=== PATIENT | female | born 1985 | race Caucasian/White ===

== ENCOUNTER → 2018-03-13 15:57 | Outpatient (CLI) | payer BC, SELFPAY ==
[2018-03-13 17:44] LABS: hCG Titer Quant., Serum 931 mIU/mL (<9 non-preg)
[2018-03-13 19:19] LABS: Chlamydia Trachomatis by PCR Negative (Negative); Neisserai gonorrhoeae by PCR Negative (Negative); Probe Check PASS; Sample Adequacy Control PASS; Specimen Processing Control PASS
[2018-03-27 12:44] LABS: HPV APTIMA, High Risk Negative (Negative); HPV Reflexed? YES, CHARGE PATIENT
== END ==
PROVIDERS: Visit Provider Obstetrics & Gynecology
DX: Z12.4 Encounter for screening for malignant neoplasm of cervix (principal); Z34.81 Encounter for supervision of other normal pregnancy, first trimester
CPT/HCPCS: 36415; 84702; 87491; 87591; 87624; 88175; G0145

== ENCOUNTER → 2018-03-15 10:41 | Outpatient (CLI) | payer BC, SELFPAY ==
[2018-03-17 09:31] LABS: Progesterone Level 29.53 ng/mL (See Comment)
[2018-03-17 11:10] LABS: hCG Titer Quant., Serum 2064 mIU/mL (<9 non-preg)
== END ==
PROVIDERS: Family Provider Family Medicine; PCP Family Medicine; Visit Provider Obstetrics & Gynecology
DX: N97.0 Female infertility associated with anovulation (principal)
CPT/HCPCS: 36415; 84144; 84702

== ENCOUNTER → 2018-04-03 09:48 | Outpatient (CLI) | payer BC, SELFPAY ==
[2018-04-03 10:43] LABS: Absolute Lymphocyte Count 1.92 X10^3/ul (0.83-4.51); Absolute Neutrophil Count 6.1 X10^3/uL (2.0-7.7); Basophil# 0.02 X10^3/uL; Basophil% 0.2 % (0-1); Eosinophil# 0.15 X10^3/uL; Eosinophils% 1.7 % (0-5); Hematocrit 38.2 % (37-47); Hemoglobin 12.8 g/dl (12.0-15.0); Lymphocyte # 1.92 X10^3/ul (4.0); Lymphocyte % 22.1 % (19-41); Mean Corp Hgb Conc 33.5 g/gl (32-36); Mean Corpuscular Hgb 29.7 pg (27.0-32.0); Mean Corpuscular Volume 88.6 fL (81-99); Mean Platelet Vol. 9.9 fl (6.2-12.0); Monocyte# 0.45 X10^3/uL; Monocyte% 5.2 % (0-10); Neutrophil # 6.12 X10^3/uL (2.7-7.7); Neutrophil % 70.7 % (47-70); Platelet Count 249 K/mm3 (150-450); RBC Distribution Width CV 12.5 % (11.6-14.6); RBC Distribution Width SD 40.3 fl (35.1-43.9); Red Blood Count 4.31 M/mm3 (4.2-5.4); White Blood Count 8.7 K/mm3 (4.4-11.0)
[2018-04-03 10:44] LABS: POSITIVE COUNT NO; POSITIVE DIFFERENTIAL NO; POSITIVE MORPHOLOGY NO
[2018-04-03 10:55] LABS: Amphetamine Urine VISTA NEGATIVE (<1000 ng/mL); Barbiturate Urine VISTA NEGATIVE (< 200 ng/mL); Benzodiazepine Urine VISTA NEGATIVE (< 200 ng/mL); Cocaine Urine VISTA NEGATIVE (< 300 ng/mL); Ecstacy Urine VISTA NEGATIVE (< 500 ng/mL); Methadone Urine VISTA NEGATIVE (< 300 ng/mL); PCP Urine VISTA NEGATIVE (< 25 ng/mL); THC Urine VISTA NEGATIVE (< 50 ng/mL); Vista UDS pH Range 6
[2018-04-03 10:56] LABS: Color, Urine Yellow (Yellow); Glucose, Dipstick Normal (Normal); Ketone-Dipstick Negative (Negative); Leukocyte Esterase-Dipstick 25 /ul (Negative); Nitrite-Dipstick Negative (Negative); Occult Blood-Urine Negative /ul (Negative); Protein-Dipstick Negative (Negative); Urine Bilirubin Dipstick Negative (Negative); Urine Clarity Clear (Clear); Urine Urobilinogen Normal (Normal)
[2018-04-03 11:08] LABS: Thyroid Stim Hormone (TSH) 0.32 uIU/mL (0.358-3.74)
[2018-04-04 01:05] LABS: Prenatal RPR NONREACTIVE (NONREACTIVE)
[2018-04-04 09:31] LABS: HIV - WCH Non-Reactive (Nonreactive)
[2018-04-04 12:03] LABS: HEPATITIS B SURFACE AG Negative (Negative); Hep C Antibodies <0.1 s/co ratio (0.0-0.9)
== END ==
PROVIDERS: Visit Provider Obstetrics & Gynecology
DX: Z34.81 Encounter for supervision of other normal pregnancy, first trimester (principal)
CPT/HCPCS: 36415; 80307; 81002; 84443; 85025; 86703; 86762; 86803; 87340

== ENCOUNTER → 2018-07-01 16:10 | Outpatient (CLI) | payer BC, SELFPAY | PROVIDERS: Family Provider Family Medicine; PCP Family Medicine; Visit Provider Obstetrics & Gynecology | DX: N39.0 Urinary tract infection, site not specified (principal) | CPT/HCPCS: 87086; 87088; 87186 ==

== ENCOUNTER → 2018-08-20 13:50 | Outpatient (CLI) | payer BC, SELFPAY ==
[2018-08-20 15:42] LABS: Hematocrit 34.7 % (37-47); Hemoglobin 11.7 g/dl (12.0-15.0); Mean Corp Hgb Conc 33.7 g/gl (32-36); Mean Corpuscular Hgb 30.6 pg (27.0-32.0); Mean Corpuscular Volume 90.8 fL (81-99); Mean Platelet Vol. 10.2 fl (6.2-12.0); Platelet Count 227 K/mm3 (150-450); RBC Distribution Width CV 13.8 % (11.6-14.6); RBC Distribution Width SD 44.8 fl (35.1-43.9); Red Blood Count 3.82 M/mm3 (4.2-5.4); White Blood Count 12.4 K/mm3 (4.4-11.0)
[2018-08-20 15:57] LABS: Scan Indicated on CBC? Y/N NO
[2018-08-20 16:16] LABS: Glucose Challenge Gest 1H 50g 136 mg/dL (70-140)
== END ==
PROVIDERS: Visit Provider Obstetrics & Gynecology
DX: Z34.83 Encounter for supervision of other normal pregnancy, third trimester (principal)
CPT/HCPCS: 82950; 85027; 86850

== ENCOUNTER → 2018-10-15 15:08 | Outpatient (CLI) | payer BC, SELFPAY | PROVIDERS: Visit Provider Obstetrics & Gynecology | DX: Z36.85 Encounter for antenatal screening for Streptococcus B (principal) | CPT/HCPCS: 87081 ==

== ENCOUNTER 2018-11-01 07:24 | Inpatient (IN) | payer BC, SELFPAY ==
[2018-11-01 01:06] VITALS: BMI 26.4
[2018-11-01] MEDS: Nalbuphine 10 MG/ML Ampul IV (04:18)
[2018-11-01 04:19] LABS: Hematocrit 37.5 % (37-47); Hemoglobin 12.7 g/dl (12.0-15.0); Mean Corp Hgb Conc 33.9 g/gl (32-36); Mean Corpuscular Hgb 30.5 pg (27.0-32.0); Mean Corpuscular Volume 90.1 fL (81-99); Mean Platelet Vol. 9.3 fl (6.2-12.0); Platelet Count 203 K/mm3 (150-450); RBC Distribution Width CV 13.6 % (11.6-14.6); RBC Distribution Width SD 44.8 fl (35.1-43.9); Red Blood Count 4.16 M/mm3 (4.2-5.4)
[2018-11-01] MEDS: 0.9% NaCl Peripheral Flush Adult/Peds IV (04:19)
[2018-11-01 04:20] LABS: Scan Indicated on CBC? Y/N NO
[2018-11-01] MEDS: 0.9% Saline Lock 10 ML Syringe IV ×2 (08:49→11:28)
[2018-11-01] MEDS: Ondansetron 4 MG/2 ML Vial IV (08:50)
[2018-11-01] MEDS: Oxytocin 30 units/NS 500 ml 30 UNITS/500 ML IV.SOLN 334 UNITS IV (09:07)
[2018-11-01] MEDS: Lactated Ringers 1,000 ML 50 ML IV (09:07)
--- NOTE | 2018-11-01 09:44 | PCM.OB.VAG ---
Vaginal Delivery Maternal Presentation: Active Labor - Prolonged prodromal labor 38 1/7 wk Amniotic Membrane Rupture Type: Artificial Amniotic Fluid Description: Clear Final ANITHA: 11/14/18 Final ANITHA Source: US <20 weeks Gestational age: 38 Weeks and 1 Days Date of Procedure: 11/01/18 Pre-Operative Diagnosis: 38 wk EGA , presents in prodromal labor. Post-Operative Diagnosis: 38 1/7 wk prolonged prodromal labor. rapid progress after AROM Surgery/ Procedure Performed: Spontaneous Vaginal Delivery Type of Anesthesia: None Description of Procedure: 38 wk observed to 38 1/7 wk with prolonged prodromal labor of more than 13 hrs AROM clear fluid then rapid progress from 6 to complete and ready to push of a barclay viable female over intact perineum. Head delivered OA. OP and nares bulb suctioned on perineum and after delivery. No nuchal cord. Shoulders delivered easily. Infant to maternal abdomen. Cord clamped x two and cut. Routine ABG, VBG and cord blood for typing collected. PP exam; no lacerations Placenta delivered by spont expulsion. 3V cord, normal appearing, intact with trailing membranes. EBL 200 cc Pt and tolerated delivery well. To recovery, stable condition. Ray Alysa counts correct x two after delivery. Presentation: Vertex Placental Delivery Description: Spontaneous, Expressed Placenta Disposition: [facility] Cord Vessel Description: 3 Vessels Cord Gases drawn per routine: ABG, VBG Cord Entanglement: None Estimated Blood Loss: 200 Infant A gender: Female (1 minute): 8 (5 minute): 9 Episiotomy Description: None Laceration: None Medications given after delivery: IV Pitocin Complications: None
[2018-11-01] MEDS: Oxytocin 30 units/NS 500 ml 30 UNITS/500 ML IV.SOLN 167 UNITS IV (09:45)
--- NOTE | 2018-11-01 09:50 | PCM.DCVAG ---
Discharge Diet: No Restrictions Discharge Activity: May Shower, May Take a Tub Bath May resume sexual activity in: 4-6 weeks Additional Activity Instructions:: Nothing in the vagina for 4-6 weeks. You may return to work/school in 6 weeks. Additional Instructions: If you experience any of the following, contact your healthcare provider. Bleeding that soaks a pad every hour for 2 hours Fever 100.4 or higher Unrelieved abdominal pain Problems urinating (including inability to urinate or burning while urinating). Visual changes Severe headache Flu-like symptoms Pain or redness in one of both of your breasts Pain, warmth, tenderness or swelling in your legs, especially the calf area Frequent nausea and vomiting Symptoms of depression or anxiety If you experience any of the following, call 911 or go to the nearest Emergency Room. Chest pain Problems breathing Seizure activity Partial or complete paralysis of a body part, slurred speech, weakness or drooping of the face, or a sudden inability to walk or hold your balance Allergies/Adverse Reactions: Allergies Penicillins [PCN] Allergy (Verified 11/21/16 16:34) Rash Medications to take at Discharge Vits [Prenatabs FA ] 1 tablet PO DAILY 11/21/16 Please Follow Up With: Tomás Brown MD - [phone] When: Call to make an appointment with your doctor in 6 weeks. Test Results: Test results from this visit will be discussed in further detail at your follow-up appointment, if applicable. Proposed Discharge Date: 11/03/18
--- NOTE | 2018-11-01 09:51 | DCINST_ITS ---
Discharge Diet: No Restrictions Discharge Activity: May Shower, May Take a Tub Bath May resume sexual activity in: 4-6 weeks Additional Activity Instructions:: Nothing in the vagina for 4-6 weeks. You may return to work/school in 6 weeks. Additional Instructions: If you experience any of the following, contact your healthcare provider. * Bleeding that soaks a pad every hour for 2 hours * Fever 100.4 or higher * Unrelieved abdominal pain * Problems urinating (including inability to urinate or burning while urinating). * Visual changes * Severe headache * Flu-like symptoms * Pain or redness in one of both of your breasts * Pain, warmth, tenderness or swelling in your legs, especially the calf area * Frequent nausea and vomiting * Symptoms of depression or anxiety If you experience any of the following, call 911 or go to the nearest Emergency Room. * Chest pain * Problems breathing * Seizure activity * Partial or complete paralysis of a body part, slurred speech, weakness or drooping of the face, or a sudden inability to walk or hold your balance Allergies/Adverse Reactions: Allergies Penicillins [PCN] Allergy (Verified 11/21/16 16:34) Rash Medications to take at Discharge Vits [Prenatabs FA ] 1 tablet PO DAILY 11/21/16 Please Follow Up With: Tomás Brown MD - [phone] When: Call to make an appointment with your doctor in 6 weeks. Test Results: Test results from this visit will be discussed in further detail at your follow- up appointment, if applicable. Proposed Discharge Date: 11/03/18
[2018-11-01] MEDS: Ibuprofen 600 MG Tablet PO ×2 (10:43→20:01)
[2018-11-01 12:50] VITALS: BP 111/76; PULSE 106; RESP 18; TEMP 37.1
[2018-11-01] MEDS: Prenatal Vits Tablet 1 TABLET PO (14:57)
[2018-11-01] MEDS: Acetaminophen 500 MG Tablet 1000 MG PO (14:58)
[2018-11-01 16:00] VITALS: BP 124/68; PULSE 77; RESP 18; TEMP 36.3
[2018-11-01 20:00] VITALS: BP 116/66; PULSE 75; RESP 16; TEMP 36.7; O2SAT 96
[2018-11-01 23:50] VITALS: BP 117/58; PULSE 61; RESP 16; TEMP 35.9; O2SAT 96
[2018-11-02 04:05] VITALS: BP 128/70; PULSE 62; RESP 16; TEMP 36.5; O2SAT 96
[2018-11-02] MEDS: Acetaminophen 500 MG Tablet 1000 MG PO (04:13)
[2018-11-02 07:59] VITALS: BP 115/58; PULSE 66; RESP 16; TEMP 36.4; O2SAT 97
[2018-11-02] MEDS: Ibuprofen 600 MG Tablet PO (08:06)
[2018-11-02] MEDS: Prenatal Vits Tablet 1 TABLET PO (08:06)
--- NOTE | 2018-11-02 08:19 | PCM.PN.OB ---
Subjective: PPD#2 Doing well. Breast feeding. Would like to go home today. - Physical Exam General: Alert, Oriented x3, Cooperative, No apparent distress Neck: Supple Psych/Mental Status: Normal Affect Vital Signs Temp Pulse Resp BP Pulse Ox 97.6 F L 66 16 115/58 L 97 11/02/18 07:59 11/02/18 07:59 11/02/18 07:59 11/02/18 07:59 11/02/18 07:59 Oxygen Delivery Method Room Air Weight: 69.853 kg Body Mass Index (BMI) 26.4 Intake and Output for Last 24 Hours 10/31/18 11/01/18 11/02/18 23:59 23:59 23:59 Intake Total 334 / 334 Output Total 500 / 500 Balance -166 / -166 Laboratory Tests Past 24 Hrs 11/01/18 11:29 Screen NEGATIVE Baby's Blood Type AB POSITIVE Baby's RACHELLE NEGATIVE Medical Necessity - Tobacco Use Smoking Status: Former smoker Assessment/Plan PPD#1 Stable pp. Continue care. May elect dischg today vs stay until PPD#2
--- OUTSIDE RECORDS SUMMARY | 2018-12-26 18:10 | XMS RPT_ITS ---
:1985 Author Organization OHIP Support Name Relationship Address Phone FARRAH NAVA Unavailable [phone] + [place] [phone] SIAURA GREYT Unavailable [address] + [place] [address] UE Unavailable Unavailable Unavailable FARRAH NAVA Unavailable [address] + [place] [phone] ISAURA GREYT Unavailable [address] + [place] [address] UE Unavailable Unavailable Unavailable FARRAH NAVA Unavailable [address] + [place] [address] ISAURA GREYT Unavailable [address] + [place] [address] UE Unavailable Unavailable Unavailable FARRAH NAVA Unavailable [address] + [place] [address] ISAURA GREYT Unavailable [address] + [place] [address] UE Unavailable Unavailable Unavailable FARRAH NAVA Unavailable [address] + [place] [address] PRANAY GREY Unavailable [address] + [place] [address] UE Unavailable Unavailable Unavailable FARRAH NAVA Unavailable [address] + [place] [address] ISAURA GREYT Unavailable [address] + [place] [address] UE Unavailable Unavailable Unavailable FARRAH NAVA Unavailable [address] + [place] [address] PRANAY GREY Unavailable [address] + [place] [address] UE Unavailable Unavailable Unavailable FARRAH NAVA Unavailable [address] + [place] [address] ISAURA GREYT Unavailable [address] + [place] [address] UE Unavailable Unavailable Unavailable FARRAH NAVA Unavailable [address] + [place] [address] QUE PRANAY Unavailable [address] + [place] [address] UE Unavailable Unavailable Unavailable Care Team Providers Name Role Phone Carlos Lopez Attending Unavailable Carlos Lopez Admitting Unavailable Lopez, Carlos Primary Care Unavailable Lopez, Carlos Admitting Unavailable Lopez, Carlos Attending Unavailable Lopez, Carlos Primary Care Unavailable Farrah Brown Attending Unavailable Farrah Brown Attending Unavailable Farrah Brown Attending Unavailable Farrah Brown Referring Unavailable LOPEZ, CARLOS O Primary Care Unavailable Farrah Brown Attending Unavailable Farrah Brown Attending Unavailable Farrah Brown Referring Unavailable LOPEZ, CARLOS O Primary Care Unavailable Farrah Brown Attending Unavailable Farrah Brown Admitting Unavailable Farrah Brown Attending Unavailable Farrah Brown Referring Unavailable LOPEZ, CARLOS O Primary Care Unavailable Farrah Brown Attending Unavailable Francine Frazier Attending Unavailable Francine Frazier Primary Care Unavailable Francine Frazier Admitting Unavailable PROBLEMS PROBLEMS DATE TYPE CONDITION / CODE ATTENDING STATUS SOURCE 10/15/2018 Unknown Z36.85 - Encounter Farrah Brown for Community screening for Hospital Streptococcus B / Repository Z36.85(ICD-10) 08/20/2018 Unknown Z34.83 - Encounter Farrah Brown for supervision of Community other normal Hospital , third Repository trimester / Z34.83(ICD-10) 04/03/2018 Unknown Z34.81 - Encounter Farrah Brown for supervision of Community other normal Hospital , first Repository trimester / Z34.81(ICD-10) 03/13/2018 Unknown Z12.4 - Encounter Farrah Brown for screening for Community malignant neoplasm Hospital of cervix / Repository Z12.4(ICD-10) 03/13/2018 Unknown Z32.01 - Encounter Farrah Brown for test, Community result positive / Hospital Z32.01(ICD-10) Repository 12/05/2017 Unknown N97.0 - Female Farrah Brown Active [place] [facility] associated with Hospital anovulation / Repository N97.0(ICD-10) PROCEDURES PROCEDURES No Procedure Records FoundRESULTS RESULTS RH NEGATIVE MOM Collected: 11/01/2018 Status: F Source: [place] WORKUP 11:29 AM [facility] REPOSITORY Order Comment: Baby's Full Name Deisi Nava Baby's Bracelet # [id number] Baby's MR # [id number] TYPE CODE TESTS RESULT OUT OF RANGE REFERENCE UNITS LAB B101.0425 A Normal MOM'S ABO NEGATIVE RH LAB B101.0450 Normal MOM'S ABS NEGATIVE LAB B101.0500 NEGATIVE Normal NEGATIVE SCREEN LAB B101.0950 AB Normal BABY'S POSITIVE ABO RH LAB B101.1000 NEGATIVE Normal BABY'S NEGATIVE RACHELLE Performed By: #### B101.0300 #### [facility] [address] [place], [address] RHOGAM Collected: 11/01/2018 Status: F Source: [place] 11:29 AM [facility] REPOSITORY TYPE CODE TESTS RESULT OUT OF REFERENCE UNITS RANGE LAB U100.2500 [id number] TRANSFUSED PRODUCT: Rho(D) Immune Globulin RhoGam COUNT: 1 Performed By: #### U100.2500 #### Non-[facility] - refer to report for specific site DISCHARGE INSTRUCTION Observed: 11/01/2018 Status: F Source: [place] 9:51 AM [facility] REPOSITORY [facility] Medical Records Department [address] [place] [address] Instructions for Home/Discharge Instructions 11/01/18 0950 MR#: [id number] Acct: [id number] Name: JOÃO NAVA Rep #: [id number] : 1985 33 From: Francine Frazier MD PCP: Status: ADM IN Discharge Diet: No Restrictions Discharge Activity: May Shower, May Take a Tub Bath May resume sexual activity in: 4-6 weeks Additional Activity Instructions:: Nothing in the vagina for 4-6 weeks. You may return to work/school in 6 weeks. Additional Instructions: If you experience any of the following, contact your healthcare provider. * Bleeding that soaks a pad every hour for 2 hours * Fever 100.4 or higher * Unrelieved abdominal pain * Problems urinating (including inability to urinate or burning while urinating). * Visual changes * Severe headache * Flu-like symptoms * Pain or redness in one of both of your breasts * Pain, warmth, tenderness or swelling in your legs, especially the calf area * Frequent nausea and vomiting * Symptoms of depression or anxiety If you experience any of the following, call 911 or go to the nearest Emergency Room. * Chest pain * Problems breathing * Seizure activity * Partial or complete paralysis of a body part, slurred speech, weakness or drooping of the face, or a sudden inability to walk or hold your balance Allergies/Adverse Reactions: Allergies Penicillins [PCN] Allergy (Verified 11/21/16 16:34) Rash Medications to take at Discharge Vits [Prenatabs FA ] 1 tablet PO DAILY 11/21/16 Please Follow Up With: Farrah Brown MD - [phone] When: Call to make an appointment with your doctor in 6 weeks. Test Results: Test results from this visit will be discussed in further detail at your follow-up appointment, if applicable. Proposed Discharge Date: 11/03/18 11/01/1851 <Electronically signed by Francine Frazier MD> Date Francine Frazier MD CC: Francine Frazier MD OPERATIVE REPORT Observed: 11/01/2018 Status: F Source: [place] 9:49 AM [facility] REPOSITORY [facility] Medical Records Department [address] [place] [address] Operative Report 11/01/18 0944 MR#: [id number] Acct: [id number] Name: JOÃO NAVA Rep #: [id number] : 1985 33 From: Francine Frazier MD PCP: Status: ADM IN [facility] Maternal Presentation: Active Labor - Prolonged prodromal labor 38 1/7 wk Amniotic Membrane Rupture Type: Artificial Amniotic Fluid Description: Clear Final ANITHA: 11/14/18 Final ANITHA Source: US <20 weeks Gestational age: 38 Weeks and 1 Days Date of Procedure: 11/01/18 Pre-Operative Diagnosis: 38 wk EGA , presents in prodromal labor. Post-Operative Diagnosis: 38 1/7 wk prolonged prodromal labor. rapid progress after AROM Surgery/ Procedure Performed: Spontaneous Vaginal Delivery Type of Anesthesia: None Description of Procedure: 38 wk observed to 38 1/7 wk with prolonged prodromal labor of more than 13 hrs AROM clear fluid then rapid progress from 6 to complete and ready to push of a barclay viable female over intact perineum. Head delivered OA. OP and nares bulb suctioned on perineum and after delivery. No nuchal cord. Shoulders delivered easily. Infant to maternal abdomen. Cord clamped x two and cut. Routine ABG, VBG and cord blood for typing collected. PP exam; no lacerations Placenta delivered by spont expulsion. 3V cord, normal appearing, intact with trailing membranes. EBL 200 cc Pt and infant tolerated delivery well. To recovery, stable condition. Ray [place]ly[place] counts correct x two after delivery. Presentation: Vertex Placental Delivery Description: Spontaneous, Expressed Placenta Disposition: [facility] Cord Vessel Description: 3 Vessels Cord Gases drawn per routine: ABG, VBG Cord Entanglement: None Estimated Blood Loss: 200 A gender: Female (1 minute): 8 (5 minute): 9 Episiotomy Description: None Laceration: None Medications given after delivery: IV Pitocin Complications: None 11/01/18 0949 <Electronically signed by Francine Frazier MD> Date Francine Frazier MD CC: Francine Frazier MD Signed CBC-COMPLETE BLOOD CNT Collected: 11/01/2018 Status: F Source: [place] NO DIFF 4:05 AM [facility] REPOSITORY TYPE CODE TESTS RESULT OUT OF RANGE REFERENCE UNITS LAB L100.1000 4.4-11.0 K/mm3 High WBC 15.0 LAB L100.1200 4.2-5.4 M/mm3 Low RBC 4.16 LAB L100.1300 12.0-15.0 g/dl Normal HGB 12.7 LAB L100.1400 37-47 % Normal HCT 37.5 LAB L100.1500 81-99 fL Normal MCV 90.1 LAB L100.1600 27.0-32.0 pg Normal MCH 30.5 LAB L100.1700 32-36 g/gl Normal MCHC 33.9 LAB L100.1810 11.6-14.6 % Normal RDW CV 13.6 LAB L100.1820 35.1-43.9 fl High RDW SD 44.8 LAB L100.1900 150-450 K/mm3 Normal PLT 203 LAB L100.2000 6.2-12.0 fl Normal MPV 9.3 Performed By: #### L100.0500 #### [facility] [address] [place], [address] TYPE AND SCREEN Collected: 11/01/2018 Status: F Source: [place] 4:05 AM [facility] REPOSITORY Order Comment: Reason for Type AND Screen/Red Cells: TYPE CODE TESTS RESULT OUT OF RANGE REFERENCE UNITS LAB B10.0800 A Normal BLOOD TYPE GEL NEGATIVE LAB B100.4000 Normal Antibody NEGATIVE Screen Performed By: #### B101.7450 #### [facility] [place], [address] Observed: 10/15/2018 Status: F Source: [place] CULTURE, GROUP B 11:00 AM [facility] REPOSITORY Comments: VAGINAL/RECTAL FELTON Culture Group B Beta Streptococcus is not isolated. Performed By: #### M100.1800 #### [facility] [address] [place], [address] CBC-COMPLETE BLOOD CNT Collected: 08/20/2018 Status: F Source: [place] NO DIFF 12:20 PM [facility] REPOSITORY TYPE CODE TESTS RESULT OUT OF RANGE REFERENCE UNITS LAB L100.1000 4.4-11.0 K/mm3 High WBC 12.4 LAB L100.1200 4.2-5.4 M/mm3 Low RBC 3.82 LAB L100.1300 12.0-15.0 g/dl Low HGB 11.7 LAB L100.1400 37-47 % Low HCT 34.7 LAB L100.1500 81-99 fL Normal MCV 90.8 LAB L100.1600 27.0-32.0 pg Normal MCH 30.6 LAB L100.1700 32-36 g/gl Normal MCHC 33.7 LAB L100.1810 11.6-14.6 % Normal RDW CV 13.8 LAB L100.1820 35.1-43.9 fl High RDW SD 44.8 LAB L100.1900 150-450 K/mm3 Normal PLT 227 LAB L100.2000 6.2-12.0 fl Normal MPV 10.2 Performed By: #### L100.0500 #### [facility] [address] [place], [address] GLUCOSE CHALLENGE GEST Collected: 08/20/2018 Status: F Source: [place] 1H 50G 12:20 PM [facility] REPOSITORY TYPE CODE TESTS RESULT OUT OF RANGE REFERENCE UNITS LAB L501.0250 70-140 mg/dL Normal GLU GEST 136 50g 1H Performed By: #### L501.0250 #### [facility] [address] [place] [place], [address] ANTIBODY SCREEN Collected: 08/20/2018 Status: F Source: [place] 12:20 PM [facility] REPOSITORY TYPE CODE TESTS RESULT OUT OF RANGE REFERENCE UNITS LAB B100.4000 Normal Antibody NEGATIVE Screen Performed By: #### B100.4000 #### [facility] [address] [place], [address] Observed: 07/01/2018 Status: F Source: [place] CULTURE, URINE 2:30 PM [facility] REPOSITORY Urine Culture ORGANISM 1: Presumptive E. coli [place] Count 50,000-80,000 Presumptive E. coli: REACTION Amoxacillin/Clavulanic Acid $ 4 S Ampicillin $ >=32 R Ampicillin/Sulbactam $ 16 I Cefazolin $ <=4 S Cefepime $ <=1 S Ceftriaxone $ <=1 S Ciprofloxacin $ <=0.25 S ESBL - Ertapenim $$$ <=0.5 S Gentamicin $ <=1 S Imipenem *NF <=0.25 S Levofloxacin $ <=0.12 S Nitrofurantoin $ <=16 S Piperacillin/Tazobactam $$ <=4 S Tobramycin $ <=1 S Trimethoprim/Sulfametho $ <=20 S (NF) indicates non-formulary drug at [facility]. Approval by Infectious Disease Specialist required before non-formulary drugs may be ordered and/or dispensed. Performed By: #### M100.0650 #### [facility] [address] [place], [place], [address] URINE DRUG SCREEN Collected: 04/03/2018 Status: F Source: [place] (VISTA) 9:49 AM [facility] REPOSITORY Order Comment: List of Drugs Taken or Suspected? UNK TYPE CODE TESTS RESULT OUT OF RANGE REFERENCE UNITS LAB L505.0075 TO BE Normal CONFIRMED Result Comment: CONFIRMATORY TESTING FOR ALL POSITIVE URINE DRUG SCREEN RESULTS WILL ONLY BE SENT OUT UPON PHYSICIAN ORDER. VISTA Urine Drug Screen methods provide only preliminary analytical test results. A more specific alternate chemical method must be used in order to obtain a confirmed analytical result. Gas chromatography/mass spectrometery (GC/MS) is the preferred confirmatory method. Clinical consideration and professional judgement should be applied to any drug of abuse test result, particularly when preliminary positive results are used. URINE TCA TESTING MUST BE ORDERED SEPARATELY. USE TEST MNEMONIC: [facility] LAB L505.5005 VISTA UDS PH 6 Normal LAB L505.5015 <1000 ng/mL AMPHETAMINES Normal NEGATIVE LAB L505.5025 < 200 ng/mL BARBITIURATES Normal NEGATIVE LAB L505.5035 < 200 ng/mL BENZODIAZIPINE Normal NEGATIVE LAB L505.5045 < 300 ng/mL COCAINE Normal NEGATIVE LAB L505.5055 < 500 ng/mL ECSTACY Normal NEGATIVE LAB L505.5065 < 300 ng/mL METHADONE Normal NEGATIVE LAB L505.5075 < 300 ng/mL OPIATES Normal NEGATIVE LAB L505.5085 < 25 ng/mL PCP Normal NEGATIVE LAB L505.5095 < 50 ng/mL THC Normal NEGATIVE Performed By: #### L505.5000 #### [facility] [address] [place], [address] CBC W/DIFF, AUTOMATED Collected: 04/03/2018 Status: F Source: [place] 9:49 AM [facility] REPOSITORY TYPE CODE TESTS RESULT OUT OF RANGE REFERENCE UNITS LAB L100.1000 4.4-11.0 K/mm3 Normal WBC 8.7 LAB L100.1200 4.2-5.4 M/mm3 Normal RBC 4.31 LAB L100.1300 12.0-15.0 g/dl Normal HGB 12.8 LAB L100.1400 37-47 % Normal HCT 38.2 LAB L100.1500 81-99 fL Normal MCV 88.6 LAB L100.1600 27.0-32.0 pg Normal MCH 29.7 LAB L100.1700 32-36 g/gl Normal MCHC 33.5 LAB L100.1810 11.6-14.6 % Normal RDW CV 12.5 LAB L100.1820 35.1-43.9 fl Normal RDW SD 40.3 LAB L100.1900 150-450 K/mm3 Normal PLT 249 LAB L100.2000 6.2-12.0 fl Normal MPV 9.9 LAB L100.2100 47-70 % High NEUT% 70.7 LAB L100.2200 19-41 % Normal LY% 22.1 LAB L100.2300 0-10 % Normal MONO% 5.2 LAB L100.2400 0-5 % Normal EO% 1.7 LAB L100.2500 0-1 % Normal BASO% 0.2 LAB L100.2550 0.0-0.9 % Normal IM GRAN % 0.100 Result Comment: IG% - Immature Granulocytes (promyelocytes, myelocytes and metamyelocytes) > 1% indicates that a LEFT SHIFT is Present. LAB L100.2620 2.0-7.7 X10 3/uL Normal Absolute Neut 6.1 LAB L100.2720 0.83-4.51 X10 3/ul Normal Absolute Lymph 1.92 Performed By: #### L100.0100 #### [facility] [place], [place], [id number] URINALYSIS, ROUTINE Collected: 04/03/2018 Status: F Source: [place] (DIPSTICK) 9:49 AM [facility] REPOSITORY Order Comment: How was Urine Obtained? CLEAN CATCH TYPE CODE TESTS RESULT OUT OF RANGE REFERENCE UNITS LAB L400.3000 Yellow COLOR Normal Yellow LAB L400.3050 Clear Normal CLARITY Clear LAB L400.3200 Normal mg/dl Normal GLUCOSE, UR Normal LAB L400.3300 Negative mg/dL Normal BILIRUBIN URINE Negative LAB L400.3400 Negative mg/dl Normal KETONE UR Negative LAB L400.3465 1.002-1.030 Normal SP.GR. DIPSTX 1.010 LAB L400.3550 5.0 - 8.0 pH UR Normal 7.0 LAB L400.3600 Negative mg/dl PROT Normal DIPSTX Negative LAB L400.3700 Normal mg/dl Normal UROBILI Normal LAB L400.3750 Negative Normal NITRITE UR Negative LAB L400.3780 Negative /ul Normal OCCULT BLOOD-UR Negative LAB L400.3800 Negative /ul High LEUK 25 ESTERASE Performed By: #### L400.2010 #### [facility] [address] [facility] [id number] THYROID STIM HORMONE Collected: 04/03/2018 Status: F Source: [place] (TSH) 9:49 AM [facility] REPOSITORY TYPE CODE TESTS RESULT OUT OF RANGE REFERENCE UNITS LAB L501.9520 0.358-3.74 uIU/mL Low TSH 0.32 Performed By: #### L501.9520 #### [facility] [address] [facility] [address] T AND S-NO Collected: 04/03/2018 Status: F Source: [place] CHARGE W/PNP 9:49 AM [facility] REPOSITORY Order Comment: Reason for Type AND Screen/Red Cells: Surgery? N TYPE CODE TESTS RESULT OUT OF RANGE REFERENCE UNITS LAB B10.0800 A Normal BLOOD NEGATIVE TYPE GEL LAB B100.4050 Normal Ab SCREEN NEGATIVE GEL Performed By: #### B100.7550 #### [facility] [address] [facility] [place], [place], [address] RPR Collected: 04/03/2018 Status: F Source: [place] 9:49 AM [facility] REPOSITORY TYPE CODE TESTS RESULT OUT OF REFERENCE UNITS RANGE LAB L700.5100 NONREACTIVE Normal RPR NONREACTIVE Performed By: #### L700.5100 #### [facility] [address] [facility]. [facility] [id number] RUBELLA IGG Collected: 04/03/2018 Status: F Source: [place] 9:49 AM [facility] REPOSITORY TYPE CODE TESTS RESULT OUT OF RANGE REFERENCE UNITS LAB L509.4000 IU/mL Normal Rubella IgG 253.0 Result Comment: Antibody results Interpretation of Immune Status < 5 IU/ml Presumed Non-immune 5 - < 10 IU/ml Equivocal > or = 10 IU/ml Presumed Immune Performed By: #### L509.4000, L3890.6005 #### [facility] [address] [facility] [place], [place], [address] HIV - [facility] Collected: 04/03/2018 Status: F Source: [place] 9:49 AM [facility] REPOSITORY TYPE CODE TESTS RESULT OUT OF RANGE REFERENCE UNITS LAB L3890.6005 Nonreactive Normal HIV - [facility] Non-Reactive Performed By: #### L509.4000, L3890.6005 #### [facility] [place], [place], [address] HEPATITIS B SURFACE Collected: 04/03/2018 Status: F Source: [place] AG 9:49 AM [facility] REPOSITORY TYPE CODE TESTS RESULT OUT OF RANGE REFERENCE UNITS LAB L3100.0400 Negative Normal HB Negative SURF AG Result Comment: Performed at: - [facility] [id number] Java Software: José Luis Jon PhD, Phone: [phone] Performed By: #### L3100.0390, L3100.0625 #### [facility] (refer to report for specific site) refer to report for address and phone number HEPATITIS C ANTIBODIES Collected: 04/03/2018 Status: F Source: [place] 9:49 AM [facility] REPOSITORY TYPE CODE TESTS RESULT OUT OF RANGE REFERENCE UNITS LAB L3100.0650 0.0-0.9 s/co ratio Normal HEP C AB <0.1 Result Comment: Negative: < 0.8 Indeterminate: 0.8 - 0.9 Positive: > 0.9 The CDC recommends that a positive HCV antibody result be followed up with a HCV Nucleic Acid Amplification test (255646). Performed By: #### L3100.0390, L3100.0625 #### [facility] (refer to report for specific site) refer to report for address and phone number HCG TITER QUANT., Collected: 03/17/2018 Status: F Source: [place] SERUM 10:56 AM [facility] REPOSITORY Order Comment: Comments: PLEASE RUN ON BLOOD FROM 03/15/18. RACK SAG2 5 N OR MY1 3 A TYPE CODE TESTS RESULT OUT OF RANGE REFERENCE UNITS LAB L700.8000 <9 non-preg mIU/mL High HCG 2064 QUANT. Performed By: #### L700.8000 #### [facility] [address], [address] PROGESTERONE LEVEL Collected: 03/15/2018 Status: F Source: [place] 10:56 AM [facility] REPOSITORY Order Comment: CD - TYPE CODE TESTS RESULT OUT OF REFERENCE UNITS RANGE LAB L509.4001 See Comment ng/mL Progesterone Normal 29.53 Result Comment: Progesterone Reference Table: UNITS Female: Follicular 0.15 - 1.40 ng/mL Luteal 3.34 - 25.56 ng/mL Mid-luteal 4.44 - 28.03 ng/mL Postmenopausal 0.0 - 0.73 ng/mL : 1st Trimester 11.22 - 90.00 ng/mL 2nd Trimester 25.55 - 89.40 ng/mL 3rd Trimester 48.40 -422.50 ng/mL Performed By: #### L509.4001 #### [facility] [address] [place], [address] HCG TITER QUANT., Collected: 03/13/2018 Status: F Source: [place] SERUM 4:27 PM [facility] REPOSITORY TYPE CODE TESTS RESULT OUT OF RANGE REFERENCE UNITS LAB L700.8000 <9 non-preg mIU/mL High HCG 931 QUANT. Performed By: #### L700.8000 #### [facility] [address], [address] CT/NG WCH BY PCR Collected: 03/13/2018 Status: F Source: [place] 3:00 PM [facility] REPOSITORY TYPE CODE TESTS RESULT OUT OF RANGE REFERENCE UNITS LAB L8200.2100 Negative Normal Chlam Negative Trac PCR LAB L8200.2200 Negative Normal NG by Negative PCR Performed By: #### L8200.2000 #### [facility] [address] [place], [address] PAP IG W/REFLEX HR Collected: 03/13/2018 Status: F Source: [place] HPV APTIMA 3:00 PM [facility] REPOSITORY Order Comment: CYTOLOGY INFORMATION: - CLINICAL INFORMATION: - DATE LMP/MENOPAUSE: 01/12/18 - COLLECTION VIAL: Thin Prep Vial - PROTECTION OFFICER SOURCE: CERVICAL/ENDOCERVICAL - COLLECTION TECHNIQUE: BRUSH/SPATULA Specimen Comment: [id number] Specimen Comment: No. of containers..01 ThinPrep Vial TYPE CODE TESTS RESULT OUT OF REFERENCE UNITS RANGE LAB L7400.0800 . High DIAGN Comment Result Comment: EPITHELIAL CELL ABNORMALITY. ATYPICAL SQUAMOUS CELLS OF UNDETERMINED SIGNIFICANCE. LAB L7400.0900 . Normal ADEQ Comment Result Comment: Satisfactory for evaluation. Endocervical and/or squamous metaplastic cells (endocervical component) are present. LAB L7400.1300 . High RECOMM Comment Result Comment: Suggest follow up as clinically appropriate. LAB L7400.1400 . Normal PERFORM Comment Result Comment: Yadi Solorio, Rn Transfer (ASCP) LAB L7400.1700 . Normal SIGN Comment Result Comment: Elizabeth Cole MD, Pathologist LAB L7400.1720 . Normal Path prov. Comment ICD9 Result Comment: R87.610 LAB L7400.2575 . Normal TEST METHOD Comment Result Comment: This liquid based ThinPrep(R) pap test was screened with the use of an image guided system. LAB L7400.2600 . Normal . COMM LAB L7400.2700 . Normal PAPSMR Comment Result Comment: The Pap smear is a screening test designed to aid in the detection of premalignant and malignant conditions of the uterine cervix. It is not a diagnostic procedure and should not be used as the sole means of detecting cervical cancer. Both false-positive and false-negative reports do occur. LAB L7400.2760 Negative Normal HPV APTIMA, Negative HR Result Comment: This test detects fourteen high-risk HPV types (16/18/31/33/35/39/45/ 51/52/56/58/59/66/68) without differentiation. Performed at: WB - [facility] [address] [id number] Java Software: Elizabeth Cole MD, Phone: [phone] Performed at: =G - [facility] [address], [place] [id number] Java Software: Elizabeth Cole MD, Phone: [phone] LAB L7323.280 . Normal HPV RFLX Comment Result Comment: See below for HPV testing results. Performed By: #### L7400.0357 #### [facility] (refer to report for specific site) refer to report for address and phone number CBC W/ AUTO DIFF Collected: 03/03/2018 Status: F Source: [facility] 9:03 AM [facility] REPOSITORY TYPE CODE TESTS RESULT OUT OF RANGE REFERENCE UNITS LAB 86741265(L 3.6-11.0 E3/mcL OINC) Normal WBC 7.6 LAB 77127111(L 3.90-5.40 E6/mcL OINC) Normal RBC 4.54 LAB 90681662(L 12.0-16.0 G/DL OINC) Normal Hgb 13.8 LAB 32728600(L 36.0-48.0 % OINC) Normal Hct 41.2 LAB 94157474(L 11.5-14.5 % OINC) Normal RDW 13.8 LAB 74927350(L 27.0-31.0 pg OINC) Normal MCH 30.4 LAB [id number](L 33.0-37.0 G/DL OINC) Normal MCHC 33.4 LAB 73786003(L 78.0-100.0 fL OINC) Normal MCV 90.8 LAB 07273391(L 7.4-11.0 fL OINC) Normal MPV 8.9 LAB 47016195(L 130-400 E3/mcL OINC) Normal Platelet 230 Performed By: #### [id number] #### FERMIN RemHemo [address] [place] [address] AUTO DIFF Collected: 03/03/2018 Status: F Source: [facility] 9:03 AM [facility] REPOSITORY Order Comment: Order Added by Discern Expert. TYPE CODE TESTS RESULT OUT OF RANGE REFERENCE UNITS LAB 25828515(L 37.0-75.0 % OINC) Normal Neutro Auto 55.2 LAB 14814734(L 20.0-55.0 % OINC) Normal Lymph Auto 34.2 LAB 52379269(L 0.0-10.0 % OINC) Normal [facility] Auto 7.0 LAB 47864897(L 0.0-11.0 % OINC) Normal Eos Auto 2.9 LAB 27031280(L 0.0-2.0 % OINC) Normal Basophil Auto 0.7 LAB 88623101(L 1.4-6.5 E3/mcL OINC) Normal Neutro 4.2 Absolute LAB 67754523(L 1.2-3.4 E3/mcL OINC) Normal Lymph Absolute 2.6 LAB 85331246(L 0.0-0.7 E3/mcL OINC) Normal [facility] Absolute 0.5 LAB 09745042(L 0.0-0.7 E3/mcL OINC) Normal Eos Absolute 0.2 LAB 81055790(L 0.0-0.2 E3/mcL OINC) Normal Basophil 0.1 Absolute Performed By: #### [id number] #### FERMIN RemHemo [address] [place] [address] TSH Collected: 03/03/2018 Status: F Source: [facility] 9:03 AM [facility] REPOSITORY TYPE CODE TESTS RESULT OUT OF RANGE REFERENCE UNITS LAB 57994173(LO 0.30-5.60 mIU/m INC) Normal TSH 0.89 Performed By: #### [id number] #### FERMIN [facility] [address] [place] [address] BMP Collected: 03/03/2018 Status: F Source: [facility] 9:03 AM [facility] REPOSITORY TYPE CODE TESTS RESULT OUT OF RANGE REFERENCE UNITS LAB 41713336(L 70-99 mg/dL OINC) Glucose Normal Lvl 82 LAB 32992022(L 8.4-10.2 mg/dL OINC) Calcium Normal Lvl 8.7 LAB 33512916(L 136-145 mEq/L OINC) Low Sodium Lvl 135 LAB 46251460(L 3.5-5.1 mEq/L OINC) Normal Potassium Lvl 3.6 LAB 12506419(L 98-107 mEq/L OINC) Chloride Normal 101 LAB 32302563(L 24.0-30.0 mEq/L OINC) Low CO2 23.0 LAB 67444178(L 7-18 mg/dL OINC) BUN Normal 11 LAB 9631798(LO 0.6-1.3 mg/dL INC) Normal Creatinine 0.6 LAB 73905784(L 5.4-30.0 ratio OINC) Normal BUN/Creat Ratio 18.3 Performed By: #### 9061581 #### FERMIN [facility] [address] [place] [address] EGFR Collected: 03/03/2018 Status: F Source: [facility] 9:03 AM [facility] REPOSITORY Order Comment: Order added by Discern Expert. TYPE CODE TESTS RESULT OUT OF RANGE REFERENCE UNITS LAB 84946373(LO mL/min/1.73 INC) m2 Normal eGFR >60 LAB 08543212(LO mL/min/1.73 INC) m2 Normal eGFR AA >60 Performed By: #### [id number] #### FERMIN RemProviation[address] [place] 2713305 LIPID PROFILE Collected: 03/03/2018 Status: F Source: [facility] 9:03 AM [facility] REPOSITORY TYPE CODE TESTS RESULT OUT OF RANGE REFERENCE UNITS LAB 20764744(LO 50-200 mg/dL INC) Normal Chol 160 Result Comment: TOTAL CHOLEESTEROL: <200 NORMAL 200 - 239 BORDERLINE HIGH >240 HIGH LAB 11199682(LOINC) >=41 mg/dL Normal HDL 76 LAB 77349903(LOINC) 0-130 mg/dL Normal LDL 60 Result Comment: <100 OPTIMAL 100-129 NEAR / ABOVE OPTIMAL 130-159 BORDERLINE HIGH 160-189 HIGH >190 VERY HIGH CALC LDL NOT VALID WHEN TRIGLYCERIDE IS >400 MG/DL LAB 48804727(LOINC) 35-150 mg/dL Normal Trig 119 Result Comment: <150 NORMAL 150-199 BORDERLINE HIGH 200-499 HIGH >500 VERY HIGH LAB 40422622(LOINC) Normal VLDL 24 Performed By: #### [id number] #### FERMIN [facility] [address] [place] [address] PROGESTERONE LEVEL Collected: 12/05/2017 Status: F Source: [place] 11:53 AM [facility] REPOSITORY Order Comment: TODAY IS CYCLE DAY 21. TYPE CODE TESTS RESULT OUT OF REFERENCE UNITS RANGE LAB L509.4001 See Comment ng/mL Progesterone Normal 34.26 Result Comment: Progesterone Reference Table: UNITS Female: Follicular 0.15 - 1.40 ng/mL Luteal 3.34 - 25.56 ng/mL Mid-luteal 4.44 - 28.03 ng/mL Postmenopausal 0.0 - 0.73 ng/mL : 1st Trimester 11.22 - 90.00 ng/mL 2nd Trimester 25.55 - 89.40 ng/mL 3rd Trimester 48.40 -422.50 ng/mL Performed By: #### L509.4001 #### [facility] [address] [place], [address] ALLERGIES ALLERGIES DATE TYPE / CODE NAME / CODE REACTION SEVERITY SOURCE 11/21/2016 Drug Penicillins/Y63534 Rash Unknown [place] Allergy/416 0476(RXNORM) [facility] 070628([facility]) Repository Drug/085546 penicillins Mandaen 003([facility]) System Repository ENCOUNTERS ENCOUNTERS ADMIT/DISCHARGE ACCOUNT NUMBER ADMITTING ENCOUNTER LOCATION SOURCE CLASS 11/14/2018 [id number] Farrah Brown [facility] ding:WP Repository 11/01/2018/11/02/20 [id number] Karin Inpatient [address] ding:WPRoom: Repository XC765Vhe: 1 10/15/2018 [id number] [facility] ding:LABSPEC Repository 08/20/2018 [id number] [facility] ding:LABSPEC Repository 07/01/2018 [id number] [facility] ding:LABSPEC Repository 04/03/2018 [id number] [facility] ding:WOBLAB Repository 03/15/2018 [id number] [facility] ding:LAB Repository 03/13/2018 [id number] [facility] ding:LABSPEC Repository 03/03/2018/03/03/20 [id number] Carlos Lopez [address] ding:[facility]Y Repository 02/27/2018/02/28/20 [id number] Carlos Lopez Ambulatory [address] ding:Abebe Repository racRoom: Room 2 12/05/2017 [id number] Ambulatory [facility] ding:WOBLAB Repository PAYERS PAYERS ENCOUNTER GUARANTOR PAYER SUBSCRIBER SOURCE 11/14/2018 JOÃO Griffiths Primary FARRAH SARELISDOB: [place] [id number] TR Insurance:ANTHEMPolic [id number] y Number: Hospital [address]Vww: (330) [id number] Repository [phone] () Date:5896-81-62KW [address]KVRGQFFMARIO HAIRSTON [address]EI: 11/14/2018 Secondary NOT GIVENUNK [place] Insurance:SELF PAY [facility]: Effective Repository Date:2018-09-24 11/01/2018 JOÃO A Primary FARRAH SARELISDOB: [place] [id number] TR Insurance:ANTHEMPolic [id number] y Number: Hospital [address]Wco: (330) [id number] Repository [phone] () Date:5678-45-56XG [address]ZOZWXZN, [place] [address]IO: 11/01/2018 Secondary NOT GIVENUNK [place] Insurance:SELF PAY [facility] Number: Effective Repository Date:2018-11-01 10/15/2018 JOÃO A Primary FARRAH SARELISDOB: [place] [id number] TR Insurance:ANTHEMPolic [id number] y Number: Hospital [id number]: (330) [id number] Repository [phone] () Date:1633-14-67WI [address]JHJUUC, [place] [address]KL: 10/15/2018 Secondary NOT GIVENUNK [place] Insurance:SELF PAY [facility] Hospital Number: Effective Repository Date:2018-10-15 08/20/2018 JOÃO A Primary FARRAH SARELISDOB: [place] [id number] TR Insurance:ANTHEMPolic [id number] Community [address] [place] [address] y Number: Hospital [address]Dnx: (330) [id number] Repository [phone] (HP) Date:3748-42-46OJ [address] [place] [address] [place] [address]QI: 08/20/2018 Secondary NOT GIVENUNK [place] Insurance:SELF PAY Community [facility] Number: Effective Repository Date:2018-08-20 07/01/2018 JOÃO Griffiths Primary FARRAH BERRYELISDOB: [place] [id number] TR Insurance:ANTHEMPolic [id number] Community [address] [place] [address] y Number: Hospital [id number]: (330) [id number] Repository [phone] () Date:6328-98-54LE [address]YCEMWAW [place] [address]US: 07/01/2018 Secondary NOT GIVENUNK [place] Insurance:SELF PAY Community [facility] Hospital Number: Effective Repository Date:2018-07-01 04/03/2018 JOÃO Griffiths Primary FARRAH BERRYELISDOB: [place] [id number] [address] Insurance:ANTHEMPolic [id number] y Number: Hospital [address]Irn: (330) [id number] Repository [phone] () Date:9591-16-70NO [address]IUUKBFK, [place] [address]YE: 04/03/2018 Secondary NOT GIVENUNK [place] Insurance:SELF PAY Community [facility] Hospital Number: Effective Repository Date:2018-04-03 03/15/2018 JOÃO Griffiths Primary FARRAH BERRYELISDOB: [place] [id number] [address] Insurance:ANTHEMPolic [id number] y Number: Hospital [id number]: (330) [id number] Repository [phone] () Date:4760-32-07UP [address]MRJKADR [place] [address]SB: 03/15/2018 Secondary NOT GIVENUNK [place] Insurance:SELF PAY Community [facility] Hospital Number: Effective Repository Date:2018-03-15 03/13/2018 João Primary FARRAH BERRYELISDOB: [place] [id number] Insurance:ANTHEMPolic [id number] [place] y Number: Hospital [address] [place] [address] [id number] Repository [address]Iga: Date:1934-71-54XG [phone] MARIO MOSHER -6 (HP) [id number]: 03/13/2018 Secondary NOT GIVENUNK [place] Insurance:SELF PAY [facility] Hospital Number: Effective Repository Date:2018-03-13 03/03/2018 JOÃO Griffiths Primary FARRAH BERRYELISDOB: Insurance:ANTHEMPolic SARELISDOB: [facility] y Number: Effective [id number] [facility] Date:2018-03-03 - [facility] Repository [address] [place] [address] [id number] [address] [place], [place] [address]Tel: Name:Real CraigDENISE [phone]: MARIO MOSHER (HP) [phone]: [phone] (HP) [phone] (WP) 02/27/2018 JOÃO Griffiths Primary FARRAH TOMPKINSSDOB: Insurance:1500 SARELISDOB: [facility] ANTHEMPolicy Number: [id number] [facility] Effective [facility] Repository [address] [place] [address] Date:2018-02-27 - [address] [place], [place] [address]Tel: [id number] [id number]: Name:CD:[id number] O (HP) [address]UXSIBCQMARIO HAIRSTON (HP)Tel: [phone]: (WP) [phone] 12/05/2017 João Primary FARRAH BERRYELISDOB: [place] [id number] Insurance:ANTHEMPolic [id number] [address] y Number: Hospital [place] [id number] Repository [address]Zej: Date:6449-62-44UF [phone] 498303UONLXLTMARIO MACDONALD () [address]WV: 12/05/2017 Secondary NOT GIVENUNK [place] Insurance:SELF PAY [facility] Hospital Number: Effective Repository Date:2017-12-05
== END 2018-11-02 12:05 | disposition home or self-care (01) | DRG 807 ==
LOC: WPOUT 07:25 → WP 07:35
PROVIDERS: Admitting Provider Obstetrics & Gynecology; Visit Provider Obstetrics & Gynecology
DX: O63.9 Long labor, unspecified (principal); Z87.891 Personal history of nicotine dependence; Z3A.38 38 weeks gestation of pregnancy; Z37.0 Single live birth
CPT/HCPCS: 59025; 59050; 85027; 85461; 86850; 86900; 90384; 99218; J7120; A4216; G0378; J2405; J2790

== ENCOUNTER → 2020-02-01 | Outpatient (CLI) | payer BC, SELFPAY ==
[2020-02-05 23:46] LABS: HPV APTIMA, High Risk Negative (Negative); HPV Reflexed? YES, CHARGE PATIENT
== END | disposition home or self-care (01) ==
PROVIDERS: Visit Provider Obstetrics & Gynecology
DX: Z12.4 Encounter for screening for malignant neoplasm of cervix (principal)
CPT/HCPCS: 87624; 88175; G0145

== ENCOUNTER → 2020-08-17 | Outpatient (CLI) | payer BC, SELFPAY ==
[2020-08-20 20:07] LABS: Chlamydia By Nucleic Acid AMP Negative (Negative)
[2020-08-20 20:51] LABS: Gonococcus By Nucleic Acid AMP Negative (Negative)
== END | disposition home or self-care (01) ==
PROVIDERS: Visit Provider Obstetrics & Gynecology
DX: Z11.3 Encounter for screening for infections with a predominantly sexual mode of transmission (principal)
CPT/HCPCS: 87491; 87591